=== PATIENT | male | born 1995 | race Caucasian/White ===

== ENCOUNTER 2017-02-01 06:29 | Emergency (ER) | payer OTHER ==
[~2017-02-01] VITALS: Ht 185.4 cm; Wt 99.8 kg
[~2017-02-01 06:29] MED LIST: AMOXICILLIN500 M1 PO; AMOXICILLIN875 MG PO; ANTI-ITCH28 GM TP; AUGMENTIN PO; BACTRIM DS TABL1 TA1 PO; CRANBERRY500 MG; MUCINEX1200 MG/BO; MUCINEX22 ML; NAPROSYN500 MG PO; VOLTAREN75 MG PO; ZYRTEC PO
[2017-02-01] MEDS ORDERED: NO MEDICATIONS (06:37)
== END 2017-02-01 08:05 | disposition home or self-care (01) ==
LOC: SED 06:29
DX: R51 Headache (principal)
CPT/HCPCS: 96372; 99283; J1885